=== PATIENT | male | born 1940 | race Caucasian/White ===

== ENCOUNTER → 2018-12-26 | Outpatient (CLI) | payer MEDICARE ==
--- NOTE | 2018-12-26 13:07 | CT ---
EXAMINATION TYPE: CT abdomen pelvis wo con DATE OF EXAM: 12/26/2018 COMPARISON: None HISTORY: Mid abdominal pain x [address] DLP: 1134 mGycm Automated exposure control for dose reduction was used. TECHNIQUE: Helical acquisition of images was performed from the lung bases through the pelvis. FINDINGS: LUNG BASES: There are multiple subpleural nodules the largest seen in the medial aspect of the right lower lobe measuring 3 mm LIVER/GB: Findings are suggestive of cholelithiasis. PANCREAS: No significant abnormality is seen. SPLEEN: No significant abnormality is seen. ADRENALS: No significant abnormality is seen. KIDNEYS: 1 cm upper pole right renal lesion is indeterminate by noncontrast CT. There is a 2 mm left renal pelvic calcification. No overt hydronephrosis. There is mild prominence of the upper pole renal calyx or a small parapelvic cyst. ADENOPATHY: None visualized. OSSEOUS STRUCTURES: Hypertrophic and degenerative changes of the vertebral column. Deformity of the pubic rami may be on the basis of previous trauma. Arthropathy of the hips noted. Surgical change inv olving the right iliac bone. Multilevel facet arthropathy and hypertrophic changes appear to result i n multilevel canal stenosis and foraminal encroachment. BOWEL: Bowel gas pattern is nonspecific with no obstruction. There is extensive retained fecal debri s throughout the colon. Mild thickening of the wall of the gastric antrum can be seen with gastritis although neoplasia not excluded. OTHER: Fat-containing inguinal hernia on the right. Correlate for previous surgery in the left. Ather osclerotic changes aorta but no evidence of aneurysm. Fat-containing periumbilical hernia. There is i s soft tissue attenuation in the right inguinal canal measuring 2.5 cm and 30 Hounsfield units. This may represent hydrocele. Correlate for undescended testes IMPRESSION: 1. Nonobstructing nephrolithiasis as discussed above. 2. Indeterminant upper pole right renal lesion by noncontrast technique. Recommend ultrasound correla tion. 3. Severe multilevel degenerative disc disease and facet arthropathy with multilevel foraminal encroa chment and canal stenosis suspected. 4. Cholelithiasis. 5. Nonspecific gas pattern with no evidence of obstruction. Correlate for constipation. 6.There is is soft tissue attenuation in the right inguinal canal measuring 2.5 cm and 30 Hounsfield units. This may represent a complicated hydrocele. Correlate for undescended testes. If clinically wa rranted correlate with ultrasound. 7. There is thickening of the wall of the gastric antrum correlate clinically if necessary with direc t visualization to assess for gastritis or mucosal lesion.
== END | disposition home or self-care (01) ==
LOC: RADCTMAIN 11:17
PROVIDERS: ATTEND Family Medicine
DX: N20.0 Calculus of kidney (principal); K80.20 Calculus of gallbladder without cholecystitis without obstruction; R93.3 Abnormal findings on diagnostic imaging of other parts of digestive tract
CPT/HCPCS: 74176

== ENCOUNTER → 2022-10-03 | Outpatient (CLI) | payer MEDICARE ==
--- NOTE | 2022-10-03 11:29 | NM ---
EXAMINATION TYPE: NM stress cardiolite complete DATE OF EXAM: 10/03/2022 COMPARISON: NONE HISTORY: Chest pain TECHNIQUE: After the intravenous administration of 9.49 mCi Tc 99m Sestamibi - Rest images obtained 45 minutes post injection. The patient exercised using a ELTON protocol and 1 minute prior to peak exercise was injected with 25.4 mCi Tc 99m Sestamibi - Stress images obtained 6 minutes post injectio n. FINDINGS: Targeted heart rate was achieved during performance of the study. Review of stress and rest SPECT jane ges demonstrates a fixed inferior wall perfusion abnormality. Gated analysis shows normal wall motio n with an estimated left ventricular ejection fraction of 64 %. IMPRESSION: No scintigraphic evidence for reversible ischemia. Fixed inferior and inferoseptal perfusion defect t o be artifactual correlate clinically to exclude previous infarct.
--- NOTE | 2022-10-03 12:42 | CA ---
Exercise Stress Test Report Name: Silverio Cooper Exam Date: 10/03/2022 09:47 Exam Location: [facility] Stress Ht (in): 74 Wt (lb): 210 BSA: 2.22 Ordering Phys: Gopi Real MD Referring Phys: CANDICE, Technologist: Marlo Birch Age: 82 Gender: M : 1940 Procedure CPT: Indications: R07.9 CHEST PAIN ICD-10 Codes: Patient History: Medications: OMEPRAZOLE,,,,, Meds past 24 hrs: Pretest Chest Pain: STRESS TEST Jd Protocol Exercise Duration (min:sec): 06:[address] Depressions (mm): Angina Score: Martinez Score: Resting HR (bpm): 81 Peak HR (bpm): 123 Resting BP (mmHg): 165 / 88 Peak BP (mmHg): 208 / 81 MPHR: 139 Target HR: 118 % MPHR: 88 METS: 7.1 Total Dose: Peak Dose: Atropine: Double Product: 25058 BP Response: Stress Termination: TARGET HR REACHED/MAX EXERTION Stress Symptoms: NO SYMPTOMS Stress Summary: ECG ANALYSIS Resting ECG: Stress ECG: CONCLUSIONS No ECG ms for ischemia or arrhythmia Average exercise capacity Hypertensive response Peak blood pressure 208/[address] Cristhian Washburn MD (Electronically Signed) Final Date: 03 October 2022 12:41
== END | disposition home or self-care (01) ==
LOC: RADNMMAIN 08:25
PROVIDERS: ATTEND Family Medicine
DX: I51.89 Other ill-defined heart diseases (principal); R04.9 Hemorrhage from respiratory passages, unspecified
CPT/HCPCS: 93017; 78452; A9500

== ENCOUNTER → 2023-12-12 | Outpatient (CLI) | payer MEDICARE ==
--- NOTE | 2023-12-14 21:18 | CT ---
EXAMINATION TYPE: CT iac wo con CT DLP: 142.7 mGycm, Automated exposure control for dose reduction was used. DATE OF EXAM: 12/12/2023 1:39 PM INDICATION: Patient age:Male; 83 years old; Reason for study: H92.09 OTALGIA, UNSPECIFIED EAR; PHH. COMPARISON: None. TECHNIQUE: Multiple thin axial images were obtained through the temporal bones and internal auditory canals. Additional coronal reformatted images were obtained. No IV contrast was utilized. CT Contrast: Contrast used: none. FINDINGS: Right Temporal Bone: External Ear: The external auditory canal is unremarkable, The tympanic membrane is present and unrem arkable. Middle Ear: The ossicles demonstrate a normal appearance. Prussak's space is clear and the scutum i s intact. There is no evidence of osseous erosion and the tegmen tympani is intact. Inner Ear: Cochlea, vestibule and semi circular canals are unremarkable. No evidence of carotid brice l dehiscence. Two and a half turns of the cochlea are identified. The vestibular aqueduct is not enl arged. Mastoid Air Cells: The mastoid air cells are clear. The tegmen mastoideum is intact. The aditus ad an trum is clear. Internal Auditory Canal: The internal auditory canal is unremarkable. Left Temporal Bone: External Ear: The external auditory canal demonstrates serum and impaction., The tympanic membrane is present and unremarkable. Middle Ear: The ossicles demonstrate a normal appearance. Prussak's space is opacified and the scut um is intact. There is no evidence of osseous erosion and the tegmen tympani is intact. Trace amount of soft tissue is seen along the hypotympanum and the tympanic membrane. Inner Ear: Cochlea, vestibule and semi circular canals are unremarkable. No evidence of carotid brice l dehiscence. Two and a half turns of the cochlea are identified. The vestibular aqueduct is not enl arged. Mastoid Air Cells: The mastoid air cells are opacified. The tegmen mastoideum is intact. The aditus a d antrum is opacified. Internal Auditory Canal: The internal auditory canal is unremarkable. Other: Atherosclerosis of the intracranial vasculature. Mild paranasal sinus disease most pronounced in the ethmoid air cells. IMPRESSION: Left mastoid air cells effusion with cerumen impaction within the left external auditory canal. There is trace fluid within the left middle ear. Correlate for otomastoiditis.
== END | disposition home or self-care (01) ==
LOC: RADCTMAIN 13:19
PROVIDERS: ATTEND Otolaryngology
DX: H74.8X2 Other specified disorders of left middle ear and mastoid (principal); H61.22 Impacted cerumen, left ear; H92.09 Otalgia, unspecified ear
CPT/HCPCS: 70480

== ENCOUNTER → 2025-01-14 | Outpatient (CLI) | payer MEDICARE ==
[~2025-01-14] MED LIST: REGADENOSON 0.4 MG/5 ML SYRINGE IV PRN
--- NOTE | 2025-01-14 11:37 | NM ---
EXAMINATION TYPE: NM stress lexiscan cardiolite DATE OF EXAM: 01/14/2025 COMPARISON: Prior nuclear medicine stress test 2021 CLINICAL INDICATION: Male, 84 years old with history of R07.9 CHEST PAIN R10.9 ABD PAIN; history of h ypertension. TECHNIQUE: After the intravenous administration of 9.2 mCi Tc 99m Sestamibi - Cardiolite resting SPE CT images acquired 58 minutes post injection. The patient received 0.4mg Lexiscan, 25.7 mCi Tc 99m Sestamibi - Stress images obtained [address] injection FINDINGS: Review of stress and rest SPECT images demonstrates persistent diminished radiotracer uptake involvin g the anteroseptal wall on stress and rest images suspicious for old infarct. Gated analysis shows o verall estimated left ventricular ejection fraction of 53 %. 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 No convincing scintigraphic evidence for reversible ischemia. [facility], , 01/14/2025 11:35 AM
--- NOTE | 2025-01-14 11:53 | CA ---
Lexiscan Nuclear Stress Test Report Name: Silverio Cooper Exam Date: 01/14/2025 10:22 Exam Location: [place] Stress Ht (in): 74 Wt (lb): 218 BSA: 2.25 Ordering Phys: Amelia Real MD Referring Phys: AMELIA REAL Technologist: VERONA YA Age: 84 Gender: M : 1940 Procedure CPT: Indications: R07.9 CHEST PAIN ICD-10 Codes: Patient History: Medications: OMEPRAZOLE,,, Meds past 24 hrs: Pretest Chest Pain: STRESS TEST Lexiscan Protocol Exercise Duration (min:sec): 02:[address] Depressions (mm): Angina Score: Martinez Score: Resting HR (bpm): 62 Peak HR (bpm): 86 Resting BP (mmHg): 162 / 89 Peak BP (mmHg): 162 / 68 MPHR: 137 Target HR: 116 % MPHR: 63 METS: 1.0 Total Dose: Peak Dose: Atropine: Double Product: 80248 BP Response: Stress Termination: INFUSION COMPLETE Stress Symptoms: NO SYMPTOMS Stress Summary: ECG ANALYSIS Resting ECG: Stress ECG: CONCLUSIONS Baseline EKG revealed normal sinus rhythm without significant ST-T changes. With Lexiscan administration, the heart rate went up from 62 to 80 bpm and the blood pressure changed from 162/82 to 148/84. Patient was asymptomatic and EKG remained unremarkable rare isolated PACs were noted by EKG criteria this is a unremarkable Lexiscan stress test. The nuclear scan results which are more pertinent will be reported by the radiology Dr. Peg Albrecht MD (Electronically Signed) Final Date: 14 January 2025 11:52
== END | disposition home or self-care (01) ==
LOC: RADNMMAIN 08:31
PROVIDERS: ATTEND Family Medicine
DX: R10.9 Unspecified abdominal pain (principal); R07.9 Chest pain, unspecified; I10 Essential (primary) hypertension
CPT/HCPCS: 93017; 78452; A9500; J2785